=== PATIENT | male | born 1935 | race Caucasian/White ===

== ENCOUNTER 2021-01-16 07:13 | Emergency (ER) | payer MEDICARE, BC ==
[~2021-01-16] VITALS: Ht 170.2 cm; Wt 86.2 kg
[~2021-01-16 07:13] MED LIST: ROSU10TA2 PO; TAMS-12 PO
--- NOTE | 2021-01-16 07:13 | NUR ---
Karla echols in ED - 01/16/21 at 0801 by EDILMA BIBRA 99 PT HAD A SYNCOPE EPISODE WHILE USING THE RESTROOM. PT DID NOT SUSTAIN ANY INJURIES OR LOSE CONSCIOUSNESS
--- NOTE | 2021-01-16 07:13 | NUR ---
BIBRA 99 PT HAD A SYNCOPE EPISODE WHILE USING THE RESTROOM. PT DID NOT SUSTAIN ANY INJURIES OR LOSE CONSCIOUSNESS. PT IS A&OX4. PT WAS ATTCHED TO MONITOR AND PULSE OX. WILL CONTINUE TO MONITOR.
[2021-01-16] MEDS ORDERED: IV NS 0.9% 1,000 ML BAG IV ONE (07:30)
[2021-01-16 07:55] LABS: BASOPHILS # (AUTO) 0.1 K/uL (0.0-0.2); BASOPHILS % (AUTO) 0.3 % (0.0-2.0); EOSINOPHILS % (AUTO) 1.3 % (0.0-6.0); HEMATOCRIT 44 % (39-51); HEMOGLOBIN 14.4 g/dL (13.5-17.5); LYMPHOCYTES # (AUTO) 0.8 K/uL (0.8-4.8); LYMPHOCYTES % (AUTO) 4.2 % (20.0-44.0); MEAN CORPUSCULAR HGB CONC 33 g/dl (31.0-36.0); MEAN CORPUSCULAR VOLUME 99 fL (80-96); MONOCYTES # (AUTO) 1.1 K/uL (0.1-1.30); MONOCYTES % (AUTO) 5.8 % (2.0-12.0); NEUTROPHILS # (AUTO) 16.1 K/uL (1.8-8.9); NEUTROPHILS % (AUTO) 88.4 % (43.0-81.0); PLATELET COUNT (AUTO) 200 K/uL (150-450); RED BLOOD CELL COUNT(AUTO) 4.43 MIL/uL (4.5-6.0); WHITE BLOOD COUNT (AUTO) 18.2 K/uL (4.3-11.0)
--- NOTE | 2021-01-16 08:00 | NUR ---
COVID SWAB DONE AND SENT TO LAB
[2021-01-16 08:18] LABS: ALANINE AMINOTRANSFERASE 16 U/L (12-78); ALBUMIN 3.3 g/dL (3.4-5.0); ALKALINE PHOSPHATASE 83 U/L (46-116); ASPARTATE AMINOTRANSFERASE 14 U/L (15-37); BILIRUBIN,DIRECT 0.2 mg/dL (0.0-0.2); BILIRUBIN,TOTAL 0.7 mg/dL (0.2-1.0); CALCIUM, SERUM 8.7 mg/dL (8.5-10.1); CARBON DIOXIDE 26 mmol/L (21-32); CHLORIDE 102 mmol/L (98-107); CREATININE 1.4 mg/dL (0.6-1.3); GLUCOSE 132 mg/dL (74-106); POTASSIUM 4.9 mmol/L (3.5-5.1); SODIUM SERUM 136 mmol/L (136-145); TOTAL PROTEIN, SERUM 6.5 g/dL (6.4-8.2); UREA NITROGEN, BLOOD 22 mg/dL (7-18)
--- NOTE | 2021-01-16 08:51 | NUR ---
PMJessie CERVANTES UROLOGIST DR WALLACE
--- NOTE | 2021-01-16 10:00 | NUR ---
URINE COLLECTED AND SENT TO LAB
--- NOTE | 2021-01-16 10:22 | NUR ---
ROOM 308-2
[2021-01-16 10:54] LABS: BILIRUBIN,URINE Negative (NEGATIVE); COLOR,URINE YELLOW (YELLOW); LEUKOCYTE ESTERASE ,URINE Negative (NEGATIVE); NITRITE, URINE Negative (NEGATIVE); PH,URINE 6.5 (5.0-8.0); PROTEIN,URINE Negative (NEGATIVE); UGLUCOSE Negative (NEGATIVE); UROBILINOGEN,URINE 0.2 EU/dL (0.2)
--- NOTE | 2021-01-16 11:00 | NUR ---
IV removed. Catheter intact and site benign. Pressure and 4x4 applied to site. No bleeding noted.Patient discharged to home in stable condition. Written and verbal after care instructions given. Patient verbalizes understanding of instruction.
[2021-01-16 11:21] VITALS: BP 134/71
[2021-01-16 11:26] LABS: BACTERIA,URINE Few /HPF (None Seen); SQUAMOUS EPITHELIAL CELL,UR Few /HPF (None Seen); WBC,URINE 0-2 /HPF (0-3)
[2021-01-16 11:27] LABS: HYALINE CASTS, URINE Few /LPF (None Seen); MUCUS,URINE Moderate /LPF (None Seen); URINE AMORPHOUS URATE Few /HPF (None Seen)
== END 2021-01-16 11:23 | disposition left against medical advice (07) ==
LOC: ER 07:15
DX: R55 Syncope and collapse (principal); Z20.822 Contact with and (suspected) exposure to COVID-19; Z53.29 Procedure and treatment not carried out because of patient's decision for other reasons; D72.829 Elevated white blood cell count, unspecified; N17.9 Acute kidney failure, unspecified; E78.5 Hyperlipidemia, unspecified; Z95.0 Presence of cardiac pacemaker; I44.0 Atrioventricular block, first degree; R06.02 Shortness of breath
CPT/HCPCS: 36415; 70450; 71045; 80048; 80076; 81001; 83880; 84484; 85025; 85730; 87426; 93005; 96360; 99291; J7030; C9803